=== PATIENT | male | born 1950 | race Caucasian/White ===

== ENCOUNTER 2020-12-13 11:54 | Inpatient (IN) ==
[2020-12-13] MEDS ORDERED: Ondansetron 4 MG/2 ML VIAL IVP PRN (15:30)
[2020-12-13] MEDS ORDERED: Naloxone 0.4 MG/ML INJ IVP PRN (15:30)
[2020-12-13] MEDS ORDERED: Nitroglycerin 0.4 MG TAB.SUBL SL PRN ×2 (15:35→17:40)
[2020-12-13] MEDS ORDERED: Aspirin 325 MG TABLET PO ONE (15:35)
[2020-12-13] MEDS ORDERED: Morphine Sulfate 2 MG/ML SYRINGE IVP PRN (16:27)
[2020-12-13 16:48] LABS: Basophils % 0.3 %; Eosinophils % 0.2 %; Hematocrit 35.2 % (37.5-50.1); Hemoglobin 12.1 g/dL (12.9-16.9); Immature Granulocytes % 0.5 % (0-4); Lymphocytes # 1.5 K/mcL (0.6-4.6); Lymphocytes % 14.2 %; Mean Corpuscular HGB Conc 34.4 g/dL (31.6-35.5); Mean Corpuscular Hemoglobin 31.8 pg (28.0-33.3); Mean Corpuscular Volume 92.6 fL (83.0-100.0); Monocytes # 1.3 K/mcL (0.0-1.3); Monocytes % 12.7 %; Neutrophils # 7.4 K/mcL (1.6-8.9); Platelet Count 196 K/mcL (140-400); Red Cell Distribution Width 13.5 % (11.5-14.5); Segmented Neutrophils % 72.1 %; White Blood Count 10.2 K/mcL (4.3-11.1)
[2020-12-13 16:57] LABS: INR 1.2; Prothrombin Time 13.3 Seconds (9.4-12.1)
[2020-12-13 17:05] LABS: BUN/Creatinine Ratio 10 (6-26); Blood Urea Nitrogen 6 mg/dL (8-23); Calcium 8.4 mg/dL (8.6-10.3); Carbon Dioxide 23 mEq/L (23-29); Chloride 99 mEq/L (98-107); Glucose 101 mg/dL (70-105); Osmolality,Calculated 274 (280-300); Potassium 3.5 mEq/L (3.5-5.1); Sodium 133 mEq/L (136-145); eGFR For African Americans > 60 (> 60); eGFR For Non-African Americans > 60 (> 60)
[2020-12-13 17:38] LABS: Troponin I 0.51 ng/mL (< 0.04)
[2020-12-13] MEDS ORDERED: *HR* Heparin 5,000 UNIT/ML VIAL IVP PRN ×2 (17:43)
[2020-12-13] MEDS ORDERED: *HR* Heparin 5,000 UNIT/ML VIAL IVP ONE (17:43)
[2020-12-13] MEDS ORDERED: Perflutren Lipid Microsphere 1.3 ML in 0.9 % Sodium Chloride 8.7 ML IVP PRN (17:48)
[2020-12-13] MEDS ORDERED: GADOBUTROL 30 MMOL/30 ML VIAL IVP ONE (19:25)
[2020-12-13] MEDS: Morphine Sulfate 2 MG/ML SYRINGE IVP PRN ×2 (19:25→23:28)
[2020-12-13] MEDS: ALPRAZolam 0.5 MG TABLET PO SCH (20:17)
[2020-12-13] MEDS: Heparin 25,000UNIT/250ML 1/2NS 25,000 UNIT/250 ML IV.SOLN IVC SCH (20:18)
[2020-12-13 22:34] LABS: BUN/Creatinine Ratio 11 (6-26); Blood Urea Nitrogen 6 mg/dL (8-23); Carbon Dioxide 21 mEq/L (23-29); Chloride 97 mEq/L (98-107); Glucose 107 mg/dL (70-105); Osmolality,Calculated 266 (280-300); Potassium 3.5 mEq/L (3.5-5.1); Sodium 129 mEq/L (136-145); eGFR For African Americans > 60 (> 60); eGFR For Non-African Americans > 60 (> 60)
[2020-12-13 22:54] LABS: Troponin I 0.47 ng/mL (< 0.04)
[2020-12-14 04:27] LABS: Basophils % 0.4 %; Eosinophils % 0.3 %; Hematocrit 32.8 % (37.5-50.1); Hemoglobin 11.5 g/dL (12.9-16.9); Immature Granulocytes % 0.5 % (0-4); Lymphocytes # 1.5 K/mcL (0.6-4.6); Lymphocytes % 14.5 %; Mean Corpuscular HGB Conc 35.1 g/dL (31.6-35.5); Mean Corpuscular Hemoglobin 31.9 pg (28.0-33.3); Mean Corpuscular Volume 90.9 fL (83.0-100.0); Mean Platelet Volume 9.8 fL (9.4-12.4); Monocytes # 0.9 K/mcL (0.0-1.3); Monocytes % 8.8 %; Neutrophils # 7.8 K/mcL (1.6-8.9); Platelet Count 194 K/mcL (140-400); Red Blood Count 3.61 M/mcL (4.19-5.50); Red Cell Distribution Width 13.2 % (11.5-14.5); Segmented Neutrophils % 75.5 %; White Blood Count 10.3 K/mcL (4.3-11.1)
[2020-12-14 04:35] LABS: Alanine Aminotransferase 9 Units/L (7-52); Albumin 3.8 g/dL (3.5-5.7); Albumin/Globulin Ratio 2.1 (1.1-2.2); Alkaline Phosphatase 63 Units/L (34-104); Aspartate Amino Transferase 22 Units/L (13-39); BUN/Creatinine Ratio 9 (6-26); Bilirubin,Direct 0.2 mg/dL (0.0-0.2); Bilirubin,Indirect 0.4 mg/dL (0.0-1.0); Bilirubin,Total 0.6 mg/dL (0.3-1.0); Blood Urea Nitrogen 5 mg/dL (8-23); Calcium 8.1 mg/dL (8.6-10.3); Carbon Dioxide 24 mEq/L (23-29); Chloride 98 mEq/L (98-107); Globulin 1.8 g/dL (2.4-3.5); Glucose 96 mg/dL (70-105); Magnesium 1.9 mg/dL (1.6-2.6); Osmolality,Calculated 269 (280-300); Potassium 3.8 mEq/L (3.5-5.1); Sodium 131 mEq/L (136-145); Total Protein 5.6 g/dL (6.4-8.9); eGFR For African Americans > 60 (> 60); eGFR For Non-African Americans > 60 (> 60)
[2020-12-14] MEDS: Morphine Sulfate 2 MG/ML SYRINGE IVP PRN ×4 (05:21→20:29)
[2020-12-14] MEDS: Metoprolol XL (24 HR) Succ 50 MG TAB.ER.24H PO SCH (07:50)
[2020-12-14] MEDS: Aspirin Enteric Coated 81 MG Tablet PO SCH (07:50)
[2020-12-14] MEDS: ALPRAZolam 0.5 MG TABLET PO SCH ×2 (07:50→20:28)
[2020-12-14] MEDS ORDERED: Ringers Solution, Lactated 1,000 ML ONE (08:53)
[2020-12-14 08:57] LABS: BUN/Creatinine Ratio 11 (6-26); Blood Urea Nitrogen 6 mg/dL (8-23); Calcium 8.2 mg/dL (8.6-10.3); Carbon Dioxide 24 mEq/L (23-29); Chloride 100 mEq/L (98-107); Glucose 95 mg/dL (70-105); Osmolality,Calculated 267 (280-300); Potassium 3.9 mEq/L (3.5-5.1); Sodium 130 mEq/L (136-145); eGFR For African Americans > 60 (> 60); eGFR For Non-African Americans > 60 (> 60)
[2020-12-14] MEDS: Isosorbide MONOnitrate (24 HR) 30 MG TAB.ER.24H PO SCH (11:21)
[2020-12-14 12:56] LABS: BUN/Creatinine Ratio 13 (6-26); Blood Urea Nitrogen 7 mg/dL (8-23); Calcium 8.3 mg/dL (8.6-10.3); Carbon Dioxide 21 mEq/L (23-29); Chloride 100 mEq/L (98-107); Glucose 124 mg/dL (70-105); Osmolality,Calculated 269 (280-300); Potassium 3.7 mEq/L (3.5-5.1); Sodium 130 mEq/L (136-145); eGFR For African Americans > 60 (> 60); eGFR For Non-African Americans > 60 (> 60)
[2020-12-14] MEDS: lisinopriL 20 MG TABLET PO SCH (13:04)
[2020-12-14 19:03] LABS: BUN/Creatinine Ratio 17 (6-26); Blood Urea Nitrogen 11 mg/dL (8-23); Calcium 8.3 mg/dL (8.6-10.3); Carbon Dioxide 22 mEq/L (23-29); Chloride 101 mEq/L (98-107); Glucose 106 mg/dL (70-105); Osmolality,Calculated 270 (280-300); Potassium 3.9 mEq/L (3.5-5.1); Sodium 130 mEq/L (136-145); eGFR For African Americans > 60 (> 60); eGFR For Non-African Americans > 60 (> 60)
[2020-12-14 21:19] LABS: BUN/Creatinine Ratio 20 (6-26); Blood Urea Nitrogen 12 mg/dL (8-23); Calcium 8.2 mg/dL (8.6-10.3); Carbon Dioxide 22 mEq/L (23-29); Chloride 100 mEq/L (98-107); Glucose 125 mg/dL (70-105); Osmolality,Calculated 271 (280-300); Potassium 3.9 mEq/L (3.5-5.1); Sodium 130 mEq/L (136-145); eGFR For African Americans > 60 (> 60); eGFR For Non-African Americans > 60 (> 60)
[2020-12-14] MEDS: Heparin 25,000UNIT/250ML 1/2NS 25,000 UNIT/250 ML IV.SOLN IVC SCH (21:46)
[2020-12-15] MEDS: Morphine Sulfate 2 MG/ML SYRINGE IVP PRN ×4 (00:30→14:18)
[2020-12-15] MEDS: Acetaminophen 325 MG TABLET PO PRN (02:44)
[2020-12-15] MEDS ORDERED: *HR* FentaNYL (PF) 100 MCG/2 ML VIAL IVP ONE (03:52)
[2020-12-15 06:02] LABS: Basophils # 0.1 K/mcL (0.0-0.2); Basophils % 0.4 %; Eosinophils % 0.3 %; Hematocrit 30.2 % (37.5-50.1); Hemoglobin 10.7 g/dL (12.9-16.9); Immature Granulocytes % 0.5 % (0-4); Lymphocytes # 1.6 K/mcL (0.6-4.6); Lymphocytes % 13.4 %; Mean Corpuscular HGB Conc 35.4 g/dL (31.6-35.5); Mean Corpuscular Hemoglobin 32.4 pg (28.0-33.3); Mean Corpuscular Volume 91.5 fL (83.0-100.0); Mean Platelet Volume 10.3 fL (9.4-12.4); Monocytes # 1.2 K/mcL (0.0-1.3); Monocytes % 9.9 %; Platelet Count 186 K/mcL (140-400); Red Cell Distribution Width 13.3 % (11.5-14.5); Segmented Neutrophils % 75.5 %; White Blood Count 11.9 K/mcL (4.3-11.1)
[2020-12-15 06:22] LABS: BUN/Creatinine Ratio 18 (6-26); Blood Urea Nitrogen 11 mg/dL (8-23); Calcium 8.2 mg/dL (8.6-10.3); Carbon Dioxide 21 mEq/L (23-29); Chloride 102 mEq/L (98-107); Glucose 103 mg/dL (70-105); Osmolality,Calculated 272 (280-300); Potassium 3.7 mEq/L (3.5-5.1); Sodium 131 mEq/L (136-145); eGFR For African Americans > 60 (> 60); eGFR For Non-African Americans > 60 (> 60)
[2020-12-15] MEDS: lisinopriL 20 MG TABLET PO SCH (07:39)
[2020-12-15] MEDS ORDERED: Acetaminophen IV 1,000 MG/100 ML BAG IVPB ONE (07:39)
[2020-12-15] MEDS: Isosorbide MONOnitrate (24 HR) 30 MG TAB.ER.24H PO SCH (07:42)
[2020-12-15] MEDS: ALPRAZolam 0.5 MG TABLET PO SCH ×2 (07:42→21:06)
[2020-12-15] MEDS: Metoprolol XL (24 HR) Succ 50 MG TAB.ER.24H PO SCH (07:42)
[2020-12-15] MEDS: Aspirin Enteric Coated 81 MG Tablet PO SCH (07:42)
[2020-12-15] MEDS: *HR* LORazepam 2 MG/ML VIAL IVP PRN (16:22)
[2020-12-15] MEDS ORDERED: Haloperidol Lactate 5 MG/ML VIAL IVP ONE ×2 (18:34→20:48)
[2020-12-15] MEDS: *HR* Ticagrelor 90 MG TABLET PO SCH (21:06)
[2020-12-16] MEDS ORDERED: Ziprasidone 10 MG, Closed System Device IM Kit 1 EACH in Water for inj. (sterile) 0.5 ML IM ONE (02:16)
[2020-12-16] MEDS: Morphine Sulfate 2 MG/ML SYRINGE IVP PRN (04:04)
[2020-12-16 06:03] LABS: Basophils % 0.2 %; Eosinophils % 0.1 %; Hematocrit 30.6 % (37.5-50.1); Hemoglobin 10.7 g/dL (12.9-16.9); Immature Granulocytes % 0.4 % (0-4); Lymphocytes # 1.4 K/mcL (0.6-4.6); Lymphocytes % 12.5 %; Mean Corpuscular Hemoglobin 31.8 pg (28.0-33.3); Mean Corpuscular Volume 90.8 fL (83.0-100.0); Mean Platelet Volume 9.7 fL (9.4-12.4); Monocytes # 1.2 K/mcL (0.0-1.3); Neutrophils # 8.3 K/mcL (1.6-8.9); Platelet Count 181 K/mcL (140-400); Red Blood Count 3.37 M/mcL (4.19-5.50); Red Cell Distribution Width 13.3 % (11.5-14.5); Segmented Neutrophils % 75.8 %
[2020-12-16 06:23] LABS: Albumin 3.7 g/dL (3.5-5.7); Albumin/Globulin Ratio 1.7 (1.1-2.2); Bilirubin,Direct 0.2 mg/dL (0.0-0.2); Bilirubin,Indirect 0.7 mg/dL (0.0-1.0); Bilirubin,Total 0.9 mg/dL (0.3-1.0); Globulin 2.2 g/dL (2.4-3.5); Magnesium 1.6 mg/dL (1.6-2.6); Total Protein 5.9 g/dL (6.4-8.9)
[2020-12-16 06:25] LABS: BUN/Creatinine Ratio 15 (6-26); Blood Urea Nitrogen 8 mg/dL (8-23); Calcium 8.2 mg/dL (8.6-10.3); Carbon Dioxide 21 mEq/L (23-29); Chloride 98 mEq/L (98-107); Glucose 107 mg/dL (70-105); Osmolality,Calculated 263 (280-300); Potassium 3.4 mEq/L (3.5-5.1); Sodium 127 mEq/L (136-145); eGFR For African Americans > 60 (> 60); eGFR For Non-African Americans > 60 (> 60)
[2020-12-16] MEDS: Isosorbide MONOnitrate (24 HR) 30 MG TAB.ER.24H PO SCH (08:25)
[2020-12-16] MEDS: NIFEdipine XL (24 HR) 60 MG TAB.ER.24 PO SCH (08:25)
[2020-12-16] MEDS: Aspirin Enteric Coated 81 MG Tablet PO SCH (08:25)
[2020-12-16] MEDS: carvediloL 6.25 MG TABLET PO SCH ×2 (08:25→16:48)
[2020-12-16] MEDS: lisinopriL 20 MG TABLET PO SCH (08:25)
[2020-12-16] MEDS: ALPRAZolam 0.5 MG TABLET PO SCH ×2 (08:25→21:22)
[2020-12-16] MEDS: *HR* Ticagrelor 90 MG TABLET PO SCH ×2 (08:26→21:22)
[2020-12-16] MEDS: Acetaminophen 325 MG TABLET PO PRN ×2 (08:30→16:47)
[2020-12-16] MEDS: Morphine Sulfate ER (12 HR) 15 MG TABLET.ER PO SCH ×2 (11:05→21:22)
[2020-12-16] MEDS ORDERED: Acetaminophen IV 1,000 MG/100 ML BAG IVPB ONE (12:56)
[2020-12-16 14:43] LABS: Potassium,Urine 41.7 mEq/L; Protein/Creatinine Ratio,Urine 0.31 mg/mg (0.00-0.20); Sodium, Urine 114.9 mEq/L
[2020-12-16] MEDS ORDERED: Morphine Sulfate ER (12 HR) 15 MG TABLET.ER PO SCH (18:00)
[2020-12-17] MEDS: Acetaminophen 325 MG TABLET PO PRN ×2 (00:31→14:37)
[2020-12-17 02:01] LABS: Basophils % 0.2 %; Eosinophils # 0.1 K/mcL (0.0-0.6); Eosinophils % 0.6 %; Hematocrit 32.6 % (37.5-50.1); Hemoglobin 11.2 g/dL (12.9-16.9); Immature Granulocytes % 0.5 % (0-4); Lymphocytes # 1.2 K/mcL (0.6-4.6); Mean Corpuscular HGB Conc 34.4 g/dL (31.6-35.5); Mean Corpuscular Hemoglobin 30.9 pg (28.0-33.3); Mean Corpuscular Volume 90.1 fL (83.0-100.0); Monocytes # 1.3 K/mcL (0.0-1.3); Monocytes % 11.4 %; Neutrophils # 8.6 K/mcL (1.6-8.9); Platelet Count 194 K/mcL (140-400); Red Blood Count 3.62 M/mcL (4.19-5.50); Red Cell Distribution Width 13.1 % (11.5-14.5); Segmented Neutrophils % 76.3 %; White Blood Count 11.2 K/mcL (4.3-11.1)
[2020-12-17 02:18] LABS: BUN/Creatinine Ratio 12 (6-26); Blood Urea Nitrogen 6 mg/dL (8-23); Calcium 8.2 mg/dL (8.6-10.3); Carbon Dioxide 22 mEq/L (23-29); Chloride 96 mEq/L (98-107); Glucose 114 mg/dL (70-105); Magnesium 1.5 mg/dL (1.6-2.6); Osmolality,Calculated 260 (280-300); Potassium 3.5 mEq/L (3.5-5.1); Sodium 126 mEq/L (136-145); eGFR For African Americans > 60 (> 60); eGFR For Non-African Americans > 60 (> 60)
[2020-12-17] MEDS: ALPRAZolam 0.5 MG TABLET PO SCH ×2 (08:41→20:57)
[2020-12-17] MEDS: Aspirin Enteric Coated 81 MG Tablet PO SCH (08:41)
[2020-12-17] MEDS: carvediloL 6.25 MG TABLET PO SCH ×2 (08:41→17:09)
[2020-12-17] MEDS: lisinopriL 20 MG TABLET PO SCH (08:41)
[2020-12-17] MEDS: QUEtiapine Fumarate 25 MG TABLET PO SCH (08:41)
[2020-12-17] MEDS: Isosorbide MONOnitrate (24 HR) 30 MG TAB.ER.24H PO SCH (08:41)
[2020-12-17] MEDS: NIFEdipine XL (24 HR) 60 MG TAB.ER.24 PO SCH (08:41)
[2020-12-17] MEDS: *HR* Ticagrelor 90 MG TABLET PO SCH ×2 (08:42→20:56)
[2020-12-17] MEDS: *HR* Enoxaparin 40 MG/0.4 ML SYRINGE SQ SCH (08:42)
[2020-12-17] MEDS: Morphine Sulfate ER (12 HR) 30 MG TABLET.ER PO SCH ×2 (09:18→20:57)
[2020-12-17] MEDS: *HR* LORazepam 2 MG/ML VIAL IVP PRN (14:37)
[2020-12-17 17:27] LABS: BUN/Creatinine Ratio 16 (6-26); Blood Urea Nitrogen 10 mg/dL (8-23); Calcium 8.7 mg/dL (8.6-10.3); Carbon Dioxide 21 mEq/L (23-29); Chloride 96 mEq/L (98-107); Glucose 154 mg/dL (70-105); Osmolality,Calculated 258 (280-300); Potassium 4.4 mEq/L (3.5-5.1); Sodium 123 mEq/L (136-145); eGFR For African Americans > 60 (> 60); eGFR For Non-African Americans > 60 (> 60)
[2020-12-18] MEDS: Acetaminophen 325 MG TABLET PO PRN ×2 (03:14→10:03)
[2020-12-18 03:32] LABS: Basophils % 0.2 %; Eosinophils % 0.1 %; Hematocrit 34.5 % (37.5-50.1); Hemoglobin 12.1 g/dL (12.9-16.9); Immature Granulocytes % 1.1 % (0-4); Lymphocytes # 0.9 K/mcL (0.6-4.6); Lymphocytes % 6.5 %; Mean Corpuscular HGB Conc 35.1 g/dL (31.6-35.5); Mean Corpuscular Volume 91.3 fL (83.0-100.0); Mean Platelet Volume 10.1 fL (9.4-12.4); Monocytes # 1.7 K/mcL (0.0-1.3); Monocytes % 11.7 %; Neutrophils # 11.7 K/mcL (1.6-8.9); Platelet Count 196 K/mcL (140-400); Red Blood Count 3.78 M/mcL (4.19-5.50); Red Cell Distribution Width 13.7 % (11.5-14.5); Segmented Neutrophils % 80.4 %; White Blood Count 14.5 K/mcL (4.3-11.1)
[2020-12-18 03:47] LABS: BUN/Creatinine Ratio 22 (6-26); Blood Urea Nitrogen 14 mg/dL (8-23); Calcium 8.7 mg/dL (8.6-10.3); Carbon Dioxide 20 mEq/L (23-29); Chloride 96 mEq/L (98-107); Glucose 115 mg/dL (70-105); Magnesium 1.8 mg/dL (1.6-2.6); Osmolality,Calculated 261 (280-300); Potassium 4.3 mEq/L (3.5-5.1); Sodium 125 mEq/L (136-145); eGFR For African Americans > 60 (> 60); eGFR For Non-African Americans > 60 (> 60)
[2020-12-18 04:01] LABS: Thyroid Stimulating Hormone 0.972 mcIU/mL (0.340-5.600)
[2020-12-18] MEDS: *HR* Enoxaparin 40 MG/0.4 ML SYRINGE SQ SCH (05:26)
[2020-12-18] MEDS: Morphine Sulfate ER (12 HR) 30 MG TABLET.ER PO SCH ×2 (08:51→21:22)
[2020-12-18] MEDS: QUEtiapine Fumarate 25 MG TABLET PO SCH (08:51)
[2020-12-18] MEDS: carvediloL 6.25 MG TABLET PO SCH ×2 (08:51→17:01)
[2020-12-18] MEDS: Thiamine (B-1) 100 MG TABLET PO SCH (08:51)
[2020-12-18] MEDS: Aspirin Enteric Coated 81 MG Tablet PO SCH (08:52)
[2020-12-18] MEDS: Isosorbide MONOnitrate (24 HR) 30 MG TAB.ER.24H PO SCH (08:52)
[2020-12-18] MEDS: NIFEdipine XL (24 HR) 60 MG TAB.ER.24 PO SCH (08:52)
[2020-12-18] MEDS: ALPRAZolam 0.5 MG TABLET PO SCH ×2 (08:52→21:22)
[2020-12-18] MEDS: lisinopriL 20 MG TABLET PO SCH (08:52)
[2020-12-18] MEDS: Folic Acid 1 MG TABLET PO SCH (08:52)
[2020-12-18] MEDS: *HR* Ticagrelor 90 MG TABLET PO SCH ×2 (08:52→21:20)
[2020-12-18] MEDS ORDERED: *HR* OxyCODONE/APAP 10/325 TABLET PO PRN (12:02)
[2020-12-18] MEDS: *HR* OxyCODONE/APAP 10/325 TABLET PO PRN (17:01)
[2020-12-18 17:17] LABS: Bacteria,Urine Few per hpf (None-Few); Bilirubin,Urine Negative (Negative); Blood,Urine Trace (Negative); Clarity,Urine Clear (Clear); Color,Urine Light-Yellow (Yellow); Glucose,Urine (UA) Normal (Normal); Ketones,Urine Negative (Negative); Leukocyte Esterase,Urine Negative (Negative); Mucus,Urine Few per lpf (None-Few); Nitrite,Urine Negative (Negative); Protein,Urine Trace mg/dL (Neg-Trace); RBC,Urine 0-3 per hpf (0-3); Specific Gravity,Urine 1.013 (1.010-1.025); WBC,Urine 0-3 per hpf (0-3)
[2020-12-18] MEDS ORDERED: Morphine Sulfate ER (12 HR) 15 MG TABLET.ER PO SCH (18:00)
[2020-12-18] MEDS: Morphine Sulfate ER (12 HR) 15 MG TABLET.ER PO SCH (21:22)
[2020-12-19] MEDS: Piperacillin/Tazobactam 3.375 GM in 0.9 % Sodium Chloride Mini Bag 100 ML IVPB SCH ×4 (00:19→23:30)
[2020-12-19] MEDS: *HR* OxyCODONE/APAP 10/325 TABLET PO PRN ×2 (00:38→13:55)
[2020-12-19] MEDS: *HR* Enoxaparin 40 MG/0.4 ML SYRINGE SQ SCH (05:39)
[2020-12-19 07:15] LABS: Basophils % 0.2 %; Eosinophils % 0.1 %; Hematocrit 30.4 % (37.5-50.1); Immature Granulocytes % 0.8 % (0-4); Lymphocytes # 0.4 K/mcL (0.6-4.6); Lymphocytes % 3.2 %; Mean Corpuscular HGB Conc 36.2 g/dL (31.6-35.5); Mean Corpuscular Hemoglobin 32.8 pg (28.0-33.3); Mean Corpuscular Volume 90.7 fL (83.0-100.0); Mean Platelet Volume 10.1 fL (9.4-12.4); Monocytes # 0.6 K/mcL (0.0-1.3); Monocytes % 4.5 %; Neutrophils # 11.3 K/mcL (1.6-8.9); Platelet Count 158 K/mcL (140-400); Red Blood Count 3.35 M/mcL (4.19-5.50); Red Cell Distribution Width 13.7 % (11.5-14.5); Segmented Neutrophils % 91.2 %; White Blood Count 12.4 K/mcL (4.3-11.1)
[2020-12-19 07:29] LABS: BUN/Creatinine Ratio 20 (6-26); Blood Urea Nitrogen 17 mg/dL (8-23); Calcium 8.6 mg/dL (8.6-10.3); Carbon Dioxide 20 mEq/L (23-29); Chloride 93 mEq/L (98-107); Glucose 117 mg/dL (70-105); Osmolality,Calculated 257 (280-300); Potassium 4.1 mEq/L (3.5-5.1); Sodium 122 mEq/L (136-145); eGFR For African Americans > 60 (> 60); eGFR For Non-African Americans > 60 (> 60)
[2020-12-19] MEDS ORDERED: 0.9 % Sodium Chloride 1,000 ML IVC SCH (07:45)
[2020-12-19] MEDS ORDERED: *HR* LORazepam 0.5 MG TABLET PO PRN (08:12)
[2020-12-19] MEDS: ALPRAZolam 0.5 MG TABLET PO SCH ×2 (08:41→20:05)
[2020-12-19] MEDS: lisinopriL 20 MG TABLET PO SCH (08:41)
[2020-12-19] MEDS: Folic Acid 1 MG TABLET PO SCH (08:41)
[2020-12-19] MEDS: NIFEdipine XL (24 HR) 60 MG TAB.ER.24 PO SCH (08:41)
[2020-12-19] MEDS: *HR* Ticagrelor 90 MG TABLET PO SCH ×2 (08:42→20:05)
[2020-12-19] MEDS: carvediloL 6.25 MG TABLET PO SCH ×2 (08:42→16:45)
[2020-12-19] MEDS: Isosorbide MONOnitrate (24 HR) 30 MG TAB.ER.24H PO SCH (08:42)
[2020-12-19] MEDS: QUEtiapine Fumarate 25 MG TABLET PO SCH (08:42)
[2020-12-19] MEDS: Thiamine (B-1) 100 MG TABLET PO SCH (08:42)
[2020-12-19] MEDS: Morphine Sulfate ER (12 HR) 30 MG TABLET.ER PO SCH ×2 (08:42→20:05)
[2020-12-19] MEDS: Aspirin Enteric Coated 81 MG Tablet PO SCH (08:42)
[2020-12-19] MEDS: Morphine Sulfate ER (12 HR) 15 MG TABLET.ER PO SCH ×2 (08:42→20:05)
[2020-12-19] MEDS: Acetaminophen 325 MG TABLET PO PRN (10:15)
[2020-12-19 12:50] LABS: Thyroid Stimulating Hormone 1.292 mcIU/mL (0.340-5.600)
[2020-12-20] MEDS: *HR* OxyCODONE/APAP 10/325 TABLET PO PRN ×3 (01:51→15:45)
[2020-12-20] MEDS: *HR* Enoxaparin 40 MG/0.4 ML SYRINGE SQ SCH (05:47)
[2020-12-20] MEDS: NIFEdipine XL (24 HR) 60 MG TAB.ER.24 PO SCH (08:08)
[2020-12-20] MEDS: ALPRAZolam 0.5 MG TABLET PO SCH ×2 (08:08→19:46)
[2020-12-20] MEDS: Morphine Sulfate ER (12 HR) 15 MG TABLET.ER PO SCH ×2 (08:08→19:46)
[2020-12-20] MEDS: *HR* Ticagrelor 90 MG TABLET PO SCH ×2 (08:09→19:46)
[2020-12-20] MEDS: Thiamine (B-1) 100 MG TABLET PO SCH (08:09)
[2020-12-20] MEDS: Morphine Sulfate ER (12 HR) 30 MG TABLET.ER PO SCH ×2 (08:09→19:46)
[2020-12-20] MEDS: Aspirin Enteric Coated 81 MG Tablet PO SCH (08:09)
[2020-12-20] MEDS: Isosorbide MONOnitrate (24 HR) 30 MG TAB.ER.24H PO SCH (08:10)
[2020-12-20] MEDS: QUEtiapine Fumarate 25 MG TABLET PO SCH (08:10)
[2020-12-20] MEDS: carvediloL 6.25 MG TABLET PO SCH ×2 (08:10→15:45)
[2020-12-20] MEDS: Piperacillin/Tazobactam 3.375 GM in 0.9 % Sodium Chloride Mini Bag 100 ML IVPB SCH ×3 (08:10→23:51)
[2020-12-20] MEDS: Folic Acid 1 MG TABLET PO SCH (08:16)
[2020-12-20 09:18] LABS: Eosinophils # 0.1 K/mcL (0.0-0.6); Hematocrit 27.6 % (37.5-50.1); Hemoglobin 9.6 g/dL (12.9-16.9); Mean Corpuscular HGB Conc 34.8 g/dL (31.6-35.5); Mean Corpuscular Hemoglobin 31.9 pg (28.0-33.3); Mean Corpuscular Volume 91.7 fL (83.0-100.0); Mean Platelet Volume 10.7 fL (9.4-12.4); Platelet Count 169 K/mcL (140-400); Red Blood Count 3.01 M/mcL (4.19-5.50); White Blood Count 10.6 K/mcL (4.3-11.1)
[2020-12-20 09:37] LABS: Alanine Aminotransferase 14 Units/L (7-52); Albumin 3.1 g/dL (3.5-5.7); Albumin/Globulin Ratio 1.3 (1.1-2.2); Alkaline Phosphatase 56 Units/L (34-104); Aspartate Amino Transferase 24 Units/L (13-39); BUN/Creatinine Ratio 20 (6-26); Bilirubin,Total 0.4 mg/dL (0.3-1.0); Blood Urea Nitrogen 15 mg/dL (8-23); Calcium 8.4 mg/dL (8.6-10.3); Carbon Dioxide 22 mEq/L (23-29); Chloride 95 mEq/L (98-107); Globulin 2.4 g/dL (2.4-3.5); Glucose 116 mg/dL (70-105); Osmolality,Calculated 260 (280-300); Potassium 3.7 mEq/L (3.5-5.1); Sodium 124 mEq/L (136-145); Total Protein 5.5 g/dL (6.4-8.9); eGFR For African Americans > 60 (> 60); eGFR For Non-African Americans > 60 (> 60)
[2020-12-20 10:03] LABS: Basophils # 0.1 K/mcL (0.0-0.2); Lymphocytes # 0.3 K/mcL (0.6-4.6); Monocytes # 0.6 K/mcL (0.0-1.3); Neutrophils # 9.4 K/mcL (1.6-8.9); Platelet Estimate Normal (Normal); Reactive Lymphocytes Present (Not Present)
[2020-12-20] MEDS ORDERED: 0.9 % Sodium Chloride 1,000 ML IVC SCH (10:15)
[2020-12-20] MEDS: Acetaminophen 325 MG TABLET PO PRN (23:51)
[2020-12-21 03:40] LABS: Hemoglobin 9.2 g/dL (12.9-16.9); Mean Corpuscular HGB Conc 34.1 g/dL (31.6-35.5); Mean Corpuscular Hemoglobin 31.6 pg (28.0-33.3); Mean Corpuscular Volume 92.8 fL (83.0-100.0); Mean Platelet Volume 10.5 fL (9.4-12.4); Platelet Count 185 K/mcL (140-400); Red Blood Count 2.91 M/mcL (4.19-5.50); Red Cell Distribution Width 14.2 % (11.5-14.5); White Blood Count 9.6 K/mcL (4.3-11.1)
[2020-12-21 03:50] LABS: BUN/Creatinine Ratio 17 (6-26); Blood Urea Nitrogen 13 mg/dL (8-23); Calcium 8.4 mg/dL (8.6-10.3); Carbon Dioxide 23 mEq/L (23-29); Chloride 102 mEq/L (98-107); Glucose 117 mg/dL (70-105); Osmolality,Calculated 275 (280-300); Potassium 3.9 mEq/L (3.5-5.1); Sodium 132 mEq/L (136-145); eGFR For African Americans > 60 (> 60); eGFR For Non-African Americans > 60 (> 60)
[2020-12-21] MEDS: *HR* Enoxaparin 40 MG/0.4 ML SYRINGE SQ SCH (06:36)
[2020-12-21] MEDS ORDERED: Isovue-370 500 ML BOTTLE IVP ONE (07:38)
[2020-12-21] MEDS: Morphine Sulfate ER (12 HR) 15 MG TABLET.ER PO SCH ×2 (07:50→21:14)
[2020-12-21] MEDS: QUEtiapine Fumarate 25 MG TABLET PO SCH (07:50)
[2020-12-21] MEDS: Isosorbide MONOnitrate (24 HR) 30 MG TAB.ER.24H PO SCH (07:50)
[2020-12-21] MEDS: ALPRAZolam 0.5 MG TABLET PO SCH ×2 (07:50→21:13)
[2020-12-21] MEDS: Aspirin Enteric Coated 81 MG Tablet PO SCH (07:50)
[2020-12-21] MEDS: NIFEdipine XL (24 HR) 60 MG TAB.ER.24 PO SCH (07:50)
[2020-12-21] MEDS: Morphine Sulfate ER (12 HR) 30 MG TABLET.ER PO SCH ×2 (07:50→21:14)
[2020-12-21] MEDS: *HR* Ticagrelor 90 MG TABLET PO SCH ×2 (07:50→21:14)
[2020-12-21] MEDS: Thiamine (B-1) 100 MG TABLET PO SCH (07:50)
[2020-12-21] MEDS: carvediloL 6.25 MG TABLET PO SCH ×2 (07:50→15:46)
[2020-12-21] MEDS: Folic Acid 1 MG TABLET PO SCH (07:51)
[2020-12-21] MEDS: Piperacillin/Tazobactam 3.375 GM in 0.9 % Sodium Chloride Mini Bag 100 ML IVPB SCH ×3 (07:51→23:55)
[2020-12-21] MEDS: *HR* OxyCODONE/APAP 10/325 TABLET PO PRN ×2 (10:20→15:47)
[2020-12-22] MEDS: *HR* OxyCODONE/APAP 10/325 TABLET PO PRN (03:03)
[2020-12-22 05:50] LABS: Hematocrit 28.9 % (37.5-50.1); Hemoglobin 9.9 g/dL (12.9-16.9); Mean Corpuscular HGB Conc 34.3 g/dL (31.6-35.5); Mean Corpuscular Volume 93.5 fL (83.0-100.0); Mean Platelet Volume 10.4 fL (9.4-12.4); Platelet Count 215 K/mcL (140-400); Red Blood Count 3.09 M/mcL (4.19-5.50); Red Cell Distribution Width 14.5 % (11.5-14.5); White Blood Count 10.3 K/mcL (4.3-11.1)
[2020-12-22 06:12] LABS: BUN/Creatinine Ratio 17 (6-26); Blood Urea Nitrogen 11 mg/dL (8-23); Calcium 8.2 mg/dL (8.6-10.3); Carbon Dioxide 24 mEq/L (23-29); Chloride 102 mEq/L (98-107); Glucose 111 mg/dL (70-105); Osmolality,Calculated 276 (280-300); Potassium 3.7 mEq/L (3.5-5.1); Sodium 133 mEq/L (136-145); eGFR For African Americans > 60 (> 60); eGFR For Non-African Americans > 60 (> 60)
[2020-12-22] MEDS: *HR* Enoxaparin 40 MG/0.4 ML SYRINGE SQ SCH (06:12)
[2020-12-22] MEDS: Folic Acid 1 MG TABLET PO SCH (07:46)
[2020-12-22] MEDS: Morphine Sulfate ER (12 HR) 15 MG TABLET.ER PO SCH ×2 (07:46→19:55)
[2020-12-22] MEDS: Morphine Sulfate ER (12 HR) 30 MG TABLET.ER PO SCH ×2 (07:46→19:55)
[2020-12-22] MEDS: ALPRAZolam 0.5 MG TABLET PO SCH ×2 (07:46→19:55)
[2020-12-22] MEDS: Thiamine (B-1) 100 MG TABLET PO SCH (07:46)
[2020-12-22] MEDS: Aspirin Enteric Coated 81 MG Tablet PO SCH (07:47)
[2020-12-22] MEDS: NIFEdipine XL (24 HR) 60 MG TAB.ER.24 PO SCH (07:47)
[2020-12-22] MEDS: *HR* Ticagrelor 90 MG TABLET PO SCH ×2 (07:47→19:56)
[2020-12-22] MEDS: QUEtiapine Fumarate 25 MG TABLET PO SCH (07:47)
[2020-12-22] MEDS: Isosorbide MONOnitrate (24 HR) 30 MG TAB.ER.24H PO SCH (07:47)
[2020-12-22] MEDS: carvediloL 6.25 MG TABLET PO SCH ×2 (07:47→16:19)
[2020-12-22] MEDS: Piperacillin/Tazobactam 3.375 GM in 0.9 % Sodium Chloride Mini Bag 100 ML IVPB SCH ×2 (07:48→16:19)
[2020-12-22] MEDS: 0.9 % Sodium Chloride 1,000 ML IVC SCH ×2 (12:34→23:02)
[2020-12-22] MEDS: Acetaminophen 325 MG TABLET PO PRN (16:19)
[2020-12-23] MEDS: Piperacillin/Tazobactam 3.375 GM in 0.9 % Sodium Chloride Mini Bag 100 ML IVPB SCH ×4 (00:19→23:36)
[2020-12-23] MEDS: *HR* OxyCODONE/APAP 10/325 TABLET PO PRN ×2 (03:59→15:00)
[2020-12-23] MEDS ORDERED: Melatonin 3 MG TABLET PO PRN (04:02)
[2020-12-23] MEDS: *HR* Enoxaparin 40 MG/0.4 ML SYRINGE SQ SCH (06:21)
[2020-12-23] MEDS: ALPRAZolam 0.5 MG TABLET PO SCH ×2 (08:34→20:34)
[2020-12-23] MEDS: Thiamine (B-1) 100 MG TABLET PO SCH (08:34)
[2020-12-23] MEDS: *HR* Ticagrelor 90 MG TABLET PO SCH ×2 (08:35→20:34)
[2020-12-23] MEDS: Isosorbide MONOnitrate (24 HR) 30 MG TAB.ER.24H PO SCH (08:35)
[2020-12-23] MEDS: Morphine Sulfate ER (12 HR) 15 MG TABLET.ER PO SCH ×2 (08:35→20:34)
[2020-12-23] MEDS: Folic Acid 1 MG TABLET PO SCH (08:35)
[2020-12-23] MEDS: NIFEdipine XL (24 HR) 60 MG TAB.ER.24 PO SCH (08:35)
[2020-12-23] MEDS: Aspirin Enteric Coated 81 MG Tablet PO SCH (08:35)
[2020-12-23] MEDS: Morphine Sulfate ER (12 HR) 30 MG TABLET.ER PO SCH ×2 (08:35→20:34)
[2020-12-23] MEDS: carvediloL 6.25 MG TABLET PO SCH ×2 (08:35→15:50)
[2020-12-23] MEDS: QUEtiapine Fumarate 25 MG TABLET PO SCH (08:35)
[2020-12-24] MEDS: *HR* OxyCODONE/APAP 10/325 TABLET PO PRN (03:24)
[2020-12-24] MEDS: *HR* Enoxaparin 40 MG/0.4 ML SYRINGE SQ SCH (05:52)
[2020-12-24 07:51] VITALS: BP 140/88; PULSE 88; TEMP 98.1; O2SAT 97
[2020-12-24] MEDS: Piperacillin/Tazobactam 3.375 GM in 0.9 % Sodium Chloride Mini Bag 100 ML IVPB SCH (09:02)
[2020-12-24] MEDS: carvediloL 6.25 MG TABLET PO SCH (09:05)
[2020-12-24] MEDS: *HR* Ticagrelor 90 MG TABLET PO SCH (09:05)
[2020-12-24] MEDS: Morphine Sulfate ER (12 HR) 15 MG TABLET.ER PO SCH (09:05)
[2020-12-24] MEDS: ALPRAZolam 0.5 MG TABLET PO SCH (09:05)
[2020-12-24] MEDS: Isosorbide MONOnitrate (24 HR) 30 MG TAB.ER.24H PO SCH (09:05)
[2020-12-24] MEDS: Morphine Sulfate ER (12 HR) 30 MG TABLET.ER PO SCH (09:05)
[2020-12-24] MEDS: Thiamine (B-1) 100 MG TABLET PO SCH (09:06)
[2020-12-24] MEDS: Aspirin Enteric Coated 81 MG Tablet PO SCH (09:06)
[2020-12-24] MEDS: NIFEdipine XL (24 HR) 60 MG TAB.ER.24 PO SCH (09:06)
[2020-12-24] MEDS: Folic Acid 1 MG TABLET PO SCH (09:06)
[2020-12-24] MEDS: QUEtiapine Fumarate 25 MG TABLET PO SCH (09:06)
== END 2020-12-24 09:38 | disposition home health service (06) | DRG 280 ==
LOC: 3BNU → SUATTDRO 14:32 → 2NNU 20:59 → 2ANU 12-15 22:27
PROVIDERS: ADMIT Pharmacist; ATTEND Internal Medicine

== ENCOUNTER 2021-07-18 22:51 | Observation (INO) ==
[2021-07-18] MEDS ORDERED: Isovue-370 500 ML BOTTLE IVP ONE ×2 (22:57)
[2021-07-18 23:25] LABS: Hematocrit 35.5 % (37.5-50.1); Hemoglobin 10.6 g/dL (12.9-16.9); Mean Corpuscular HGB Conc 29.9 g/dL (31.6-35.5); Mean Corpuscular Hemoglobin 26.8 pg (28.0-33.3); Mean Corpuscular Volume 89.9 fL (83.0-100.0); Mean Platelet Volume 10.4 fL (9.4-12.4); Platelet Count 259 K/mcL (140-400); Red Blood Count 3.95 M/mcL (4.19-5.50); Red Cell Distribution Width 14.5 % (11.5-14.5); White Blood Count 8.7 K/mcL (4.3-11.1)
[2021-07-18 23:33] LABS: INR 1.3
[2021-07-18 23:35] LABS: Activated Partial Thrombo Time 31.7 Seconds (26.0-36.0)
[2021-07-18 23:53] LABS: Alanine Aminotransferase 6 Units/L (7-52); Albumin 3.2 g/dL (3.5-5.7); Albumin/Globulin Ratio 1.2 (1.1-2.2); Alkaline Phosphatase 96 Units/L (34-104); Aspartate Amino Transferase 13 Units/L (13-39); BUN/Creatinine Ratio 16 (6-26); Bilirubin,Indirect 0.3 mg/dL (0.0-1.0); Bilirubin,Total 0.3 mg/dL (0.3-1.0); Blood Urea Nitrogen 12 mg/dL (8-23); Carbon Dioxide 23 mEq/L (23-29); Chloride 105 mEq/L (98-107); Ethanol < 10 mg/dL (Less than 10); Globulin 2.7 g/dL (2.4-3.5); Glucose 115 mg/dL (70-105); Osmolality,Calculated 279 (280-300); Potassium 4.1 mEq/L (3.5-5.1); Sodium 134 mEq/L (136-145); Total Protein 5.9 g/dL (6.4-8.9); Troponin I < 0.03 ng/mL (< 0.04); eGFR For African Americans > 60 (> 60); eGFR For Non-African Americans > 60 (> 60)
[2021-07-19 00:14] LABS: Bilirubin,Urine Negative (Negative); Blood,Urine Trace (Negative); Clarity,Urine Clear (Clear); Color,Urine Light-Yellow (Yellow); Glucose,Urine (UA) Normal (Normal); Ketones,Urine Negative (Negative); Leukocyte Esterase,Urine Negative (Negative); Mucus,Urine Few per lpf (None-Few); Nitrite,Urine Negative (Negative); Protein,Urine Trace mg/dL (Neg-Trace); RBC,Urine 0-3 per hpf (0-3); Specific Gravity,Urine 1.028 (1.010-1.025); Urobilinogen,Urine Normal (Normal); WBC,Urine 0-3 per hpf (0-3)
[2021-07-19 00:24] LABS: Amphetamine Screen,Urine Negative ng/mL (Cutoff=1000); Barbiturate Screen,Urine Negative ng/mL (Cutoff=200); Benzodiazepines Screen,Urine Positive ng/mL (Cutoff=200); Cannabinoid Screen,Urine Positive ng/mL (Cutoff = 50); Cocaine Screen,Urine Negative ng/mL (Cutoff= 300); Opiate Screen,Urine Positive ng/mL (Cutoff=300); Phencyclidine Screen,Urine Negative ng/mL (Cutoff=25)
[2021-07-19 00:47] LABS: Influenza A PCR Negative (Negative); Influenza B PCR Negative (Negative); Resp. Syncytial Virus PCR Negative (Negative)
[2021-07-19 00:49] LABS: SARS-CoV-2 by PCR (In House) Negative (Negative)
[2021-07-19] MEDS ORDERED: Vancomycin 1,500 MG/265 ML IV.SOLN IVPB ONE (01:30)
[2021-07-19] MEDS ORDERED: Cefepime HCl 2,000 MG in 0.9 % Sodium Chloride Mini Bag 100 ML IVPB ONE (02:00)
[2021-07-19] MEDS ORDERED: Ringers Solution, Lactated 1,000 ML IVC ONE (02:36)
[2021-07-19] MEDS ORDERED: Naloxone 0.4 MG/ML INJ IVP PRN (02:37)
[2021-07-19] MEDS ORDERED: Melatonin 3 MG TABLET PO PRN (02:37)
[2021-07-19] MEDS ORDERED: Ondansetron ODT 4 MG TAB.RAPDIS SL PRN (02:37)
[2021-07-19 02:46] LABS: Basophils % 0.4 %; Eosinophils # 0.2 K/mcL (0.0-0.6); Eosinophils % 1.9 %; Immature Granulocytes % 0.4 % (0-4); Lymphocytes # 0.5 K/mcL (0.6-4.6); Lymphocytes % 6.2 %; Monocytes # 0.4 K/mcL (0.0-1.3); Monocytes % 4.2 %; Neutrophils # 7.4 K/mcL (1.6-8.9); Segmented Neutrophils % 86.9 %
[2021-07-19] MEDS ORDERED: Ringers Solution, Lactated 1,000 ML IVC SCH ×2 (04:45→10:04)
[2021-07-19] MEDS: *HR* Heparin 5,000 UNIT/ML VIAL SQ SCH ×2 (05:55→17:45)
[2021-07-19 07:02] LABS: BUN/Creatinine Ratio 16 (6-26); Blood Urea Nitrogen 13 mg/dL (8-23); Calcium 8.6 mg/dL (8.6-10.3); Carbon Dioxide 26 mEq/L (23-29); Chloride 106 mEq/L (98-107); Chol/HDL Ratio 3.5 (0-4.9); Cholesterol 120 mg/dL (< 200); Glucose 126 mg/dL (70-105); HDL Cholesterol 34 mg/dL (40-59); LDL Cholesterol,Calculated 72 mg/dL (< 100); Magnesium 1.8 mg/dL (1.6-2.6); Osmolality,Calculated 284 (280-300); Phosphorous 3.3 mg/dL (2.7-4.5); Potassium 4.1 mEq/L (3.5-5.1); Sodium 136 mEq/L (136-145); Triglycerides 71 mg/dL (< 150); eGFR For African Americans > 60 (> 60); eGFR For Non-African Americans > 60 (> 60)
[2021-07-19] MEDS: levoFLOXacin 750 MG/150 ML 750 MG/150 ML BAG IVPB SCH (08:43)
[2021-07-19] MEDS: ALPRAZolam 0.5 MG TABLET PO PRN (15:27)
[2021-07-19] MEDS: Gabapentin 400 MG CAPSULE PO SCH (19:47)
[2021-07-19] MEDS: *HR* Ticagrelor 90 MG TABLET PO SCH (19:47)
[2021-07-19] MEDS: Morphine Sulfate ER (12 HR) 30 MG TABLET.ER PO SCH (20:04)
[2021-07-20] MEDS: Nicotine 21 MG PATCH.TD24 TD SCH ×2 (00:56→09:28)
[2021-07-20] MEDS: ALPRAZolam 0.5 MG TABLET PO PRN (02:02)
[2021-07-20] MEDS: *HR* Heparin 5,000 UNIT/ML VIAL SQ SCH (05:20)
[2021-07-20] MEDS: Morphine Sulfate ER (12 HR) 30 MG TABLET.ER PO SCH (05:21)
[2021-07-20] MEDS ORDERED: Morphine Sulfate ER (12 HR) 60 MG TABLET.ER PO SCH (06:00)
[2021-07-20 06:03] LABS: Basophils # 0.1 K/mcL (0.0-0.2); Basophils % 0.4 %; Eosinophils # 0.2 K/mcL (0.0-0.6); Eosinophils % 1.5 %; Hematocrit 33.2 % (37.5-50.1); Hemoglobin 10.3 g/dL (12.9-16.9); Immature Granulocytes % 0.7 % (0-4); Lymphocytes # 1.5 K/mcL (0.6-4.6); Lymphocytes % 12.2 %; Mean Corpuscular Hemoglobin 27.2 pg (28.0-33.3); Mean Corpuscular Volume 87.6 fL (83.0-100.0); Mean Platelet Volume 10.6 fL (9.4-12.4); Monocytes # 0.6 K/mcL (0.0-1.3); Monocytes % 5.4 %; Neutrophils # 9.6 K/mcL (1.6-8.9); Platelet Count 223 K/mcL (140-400); Red Blood Count 3.79 M/mcL (4.19-5.50); Red Cell Distribution Width 14.9 % (11.5-14.5); Segmented Neutrophils % 79.8 %
[2021-07-20 06:26] LABS: BUN/Creatinine Ratio 20 (6-26); Blood Urea Nitrogen 12 mg/dL (8-23); Calcium 8.5 mg/dL (8.6-10.3); Carbon Dioxide 24 mEq/L (23-29); Chloride 106 mEq/L (98-107); Glucose 101 mg/dL (70-105); Magnesium 1.8 mg/dL (1.6-2.6); Osmolality,Calculated 282 (280-300); Potassium 3.3 mEq/L (3.5-5.1); Sodium 136 mEq/L (136-145); eGFR For African Americans > 60 (> 60); eGFR For Non-African Americans > 60 (> 60)
[2021-07-20] MEDS ORDERED: Potassium Chloride Elixir 20 MEQ/15 ML UDC PO ONE (07:11)
[2021-07-20 07:41] VITALS: O2SAT 96
[2021-07-20] MEDS ORDERED: amLODIPine 5 MG TABLET PO SCH (09:00)
[2021-07-20] MEDS ORDERED: Aspirin Enteric Coated 81 MG Tablet PO SCH (09:00)
[2021-07-20] MEDS ORDERED: Isosorbide MONOnitrate (24 HR) 30 MG TAB.ER.24H PO SCH (09:00)
[2021-07-20] MEDS ORDERED: Metoprolol XL (24 HR) Succ 50 MG TAB.ER.24H PO SCH (09:00)
[2021-07-20] MEDS: Gabapentin 400 MG CAPSULE PO SCH (09:28)
[2021-07-20] MEDS: levoFLOXacin 750 MG/150 ML 750 MG/150 ML BAG IVPB SCH (09:34)
[2021-07-20] MEDS: *HR* Ticagrelor 90 MG TABLET PO SCH (09:42)
[2021-07-20 12:09] VITALS: BP 152/76; PULSE 74; TEMP 98.5
== END 2021-07-20 13:38 | disposition home or self-care (01) ==
LOC: 2ANU 22:51 → EMEROOARM 22:51 → SUATTDRO 07-19 03:17 → 2ANU 07-19 05:05
PROVIDERS: ADMIT Internal Medicine; ATTEND Internal Medicine

== ENCOUNTER 2021-09-18 06:11 | Inpatient (IN) ==
[2021-09-18] MEDS ORDERED: CeFAZolin Syr 2,000MG/20 ML 2,000 MG/20 ML SYRINGE IVPB ONE (06:48)
[2021-09-18] MEDS ORDERED: Ringers Solution, Lactated 1,000 ML IVC SCH (07:00)
[2021-09-18] MEDS ORDERED: Vancomycin 1,000 MG VIAL ONE (07:04)
[2021-09-18] MEDS ORDERED: Heparin 1,000 UNITS/500 mL 1,000 ML ONE (07:04)
[2021-09-18] MEDS ORDERED: Bupivacaine-MPF 0.25% 10 ML VIAL ONE (07:04)
[2021-09-18] MEDS ORDERED: Lidocaine 1% 0 ML ONE (07:04)
[2021-09-18] MEDS ORDERED: Famotidine 20 MG/2 ML VIAL IVP ONE (07:10)
[2021-09-18] MEDS ORDERED: Acetaminophen IV 1,000 MG/100 ML BAG IVPB ONE (07:11)
[2021-09-18] MEDS ORDERED: Heparin 1,000 UNITS/500 mL 0 ML ONE (07:13)
[2021-09-18] MEDS ORDERED: Lidocaine HCL 4 ML Topical Solution (Laryng-O-Jet Kit Sterile Pak) TP ONE (07:20)
[2021-09-18] MEDS ORDERED: *HR* Propofol 200 MG/20 ML VIAL IVP ONE (07:21)
[2021-09-18] MEDS ORDERED: *HR* FentaNYL (PF) 100 MCG/2 ML VIAL ONE (07:22)
[2021-09-18] MEDS ORDERED: Lidocaine -MPF 2% 5 ML VIAL ONE (07:23)
[2021-09-18] MEDS ORDERED: *HR* Rocuronium Bromide 50 MG/5 ML VIAL ONE (07:24)
[2021-09-18] MEDS ORDERED: *HR* Succinylcholine 200 MG/10 ML VIAL IVP ONE (07:24)
[2021-09-18] MEDS ORDERED: Protamine Sulfate 50 MG/5 ML VIAL IVP ONE (07:26)
[2021-09-18] MEDS ORDERED: Ondansetron 4 MG/2 ML VIAL ONE (07:28)
[2021-09-18] MEDS ORDERED: *HR* Phenylephrine 10 MG/ML VIAL ONE (07:29)
[2021-09-18] MEDS ORDERED: *HR* Remifentanil 1 MG VIAL IVP ONE (07:29)
[2021-09-18] MEDS ORDERED: *HR* Heparin 5,000 UNIT/ML VIAL ONE (07:36)
[2021-09-18] MEDS ORDERED: NiCARdipine 2.5 MG/10 ML Syringe IVPB ONE (07:41)
[2021-09-18] MEDS ORDERED: Vancomycin 1,000 MG, Sodium Chloride IRRigation 1,000 ML IR ONE (07:45)
[2021-09-18] MEDS ORDERED: EPHEDrine 50 MG/ML VIAL ONE (09:09)
[2021-09-18] MEDS ORDERED: Sugammadex Sodium 200 MG/2 ML VIAL IV ONE (10:04)
[2021-09-18] MEDS ORDERED: Ondansetron 4 MG/2 ML VIAL IVP PRN ×2 (10:44→12:32)
[2021-09-18] MEDS: *HR* HYDROmorphone PF 0.5 MG/0.5 ML SYRINGE IVP PRN ×3 (10:47→11:05)
[2021-09-18] MEDS: *HR* Labetalol 20 MG/4 ML SYRINGE IVP PRN ×4 (10:55→11:17)
[2021-09-18] MEDS ORDERED: Ondansetron ODT 4 MG TAB.RAPDIS SL PRN (12:32)
[2021-09-18] MEDS ORDERED: 0.9 % Sodium Chloride 1,000 ML IVC SCH (12:32)
[2021-09-18] MEDS ORDERED: Naloxone 0.4 MG/ML INJ IVP PRN (12:32)
[2021-09-18] MEDS ORDERED: Nitroglycerin 0.4 MG TAB.SUBL SL PRN (12:32)
[2021-09-18] MEDS ORDERED: Acetaminophen 325 MG TABLET PO PRN (12:32)
[2021-09-18] MEDS ORDERED: *HR* Labetalol 20 MG/4 ML SYRINGE IVP PRN (12:32)
[2021-09-18] MEDS ORDERED: *HR* OxyCODONE/APAP 5/325 TABLET PO PRN (12:32)
[2021-09-18] MEDS: Gabapentin 400 MG CAPSULE PO SCH ×2 (14:06→20:41)
[2021-09-18] MEDS: *HR* OxyCODONE Immed Rel 5 MG TABLET PO PRN ×2 (14:06→20:41)
[2021-09-18] MEDS: *HR* Metoprolol 5 MG/5 ML VIAL IVP SCH ×2 (14:09→18:00)
[2021-09-18] MEDS: CeFAZolin 2 GM/100 ML BAG IVPB SCH ×2 (14:14→22:30)
[2021-09-18] MEDS: Morphine Sulfate ER (12 HR) 60 MG TABLET.ER PO SCH (17:59)
[2021-09-18] MEDS: ALPRAZolam 0.5 MG TABLET PO SCH (20:41)
[2021-09-19] MEDS: *HR* Metoprolol 5 MG/5 ML VIAL IVP SCH ×2 (00:30→05:38)
[2021-09-19] MEDS: Morphine Sulfate ER (12 HR) 60 MG TABLET.ER PO SCH (05:38)
[2021-09-19] MEDS ORDERED: *HR* Heparin 5,000 UNIT/ML VIAL SQ SCH ×2 (06:00)
[2021-09-19] MEDS: CeFAZolin 2 GM/100 ML BAG IVPB SCH (08:01)
[2021-09-19] MEDS: ALPRAZolam 0.5 MG TABLET PO SCH (08:07)
[2021-09-19] MEDS: Gabapentin 400 MG CAPSULE PO SCH (08:08)
[2021-09-19] MEDS ORDERED: Metoprolol XL (24 HR) Succ 50 MG TAB.ER.24H PO SCH (09:00)
[2021-09-19] MEDS ORDERED: amLODIPine 5 MG TABLET PO SCH (09:00)
[2021-09-19] MEDS ORDERED: Isosorbide MONOnitrate (24 HR) 30 MG TAB.ER.24H PO SCH (09:00)
[2021-09-19] MEDS ORDERED: Aspirin Enteric Coated 81 MG Tablet PO SCH (09:00)
[2021-09-19 11:27] VITALS: BP 165/87; PULSE 74; TEMP 97.9; O2SAT 100
== END 2021-09-19 13:20 | disposition home or self-care (01) | DRG 39 ==
LOC: SAMDAY 06:11 → 2NNU 11:58
PROVIDERS: ADMIT Surgery; ATTEND Surgery

== ENCOUNTER 2022-01-16 13:40 | Inpatient (IN) ==
[2022-01-16] MEDS ORDERED: Piperacillin/Tazobactam 3.375 GM in 0.9 % Sodium Chloride Mini Bag 100 ML IVPB ONE (14:24)
[2022-01-16 14:44] LABS: Basophils % 0.2 %; Hematocrit 35.3 % (37.5-50.1); Hemoglobin 11.4 g/dL (12.9-16.9); Immature Granulocytes % 1.1 % (0-4); Lymphocytes # 0.5 K/mcL (0.6-4.6); Lymphocytes % 3.3 %; Mean Corpuscular HGB Conc 32.3 g/dL (31.6-35.5); Mean Corpuscular Hemoglobin 27.7 pg (28.0-33.3); Mean Corpuscular Volume 85.7 fL (83.0-100.0); Monocytes # 1.2 K/mcL (0.0-1.3); Monocytes % 8.2 %; Platelet Count 250 K/mcL (140-400); Red Blood Count 4.12 M/mcL (4.19-5.50); Red Cell Distribution Width 15.1 % (11.5-14.5); Segmented Neutrophils % 87.2 %; White Blood Count 14.9 K/mcL (4.3-11.1)
[2022-01-16] MEDS: 0.9 % Sodium Chloride 1,000 ML IVC SCH ×3 (14:47→16:54)
[2022-01-16 14:51] LABS: INR 1.9
[2022-01-16 14:54] LABS: Activated Partial Thrombo Time 35.6 Seconds (26.0-36.0)
[2022-01-16 15:11] LABS: Alanine Aminotransferase 15 Units/L (7-52); Albumin 3.6 g/dL (3.5-5.7); Albumin/Globulin Ratio 1.1 (1.1-2.2); Alkaline Phosphatase 103 Units/L (34-104); Aspartate Amino Transferase 65 Units/L (13-39); BUN/Creatinine Ratio 17 (6-26); Bilirubin,Direct 0.3 mg/dL (0.0-0.2); Bilirubin,Indirect 0.4 mg/dL (0.0-1.0); Bilirubin,Total 0.7 mg/dL (0.3-1.0); Blood Urea Nitrogen 20 mg/dL (8-23); Carbon Dioxide 23 mEq/L (23-29); Chloride 102 mEq/L (98-107); Globulin 3.2 g/dL (2.4-3.5); Glucose 172 mg/dL (70-105); Magnesium 1.7 mg/dL (1.6-2.6); Osmolality,Calculated 291 (280-300); Phosphorous 1.3 mg/dL (2.7-4.5); Potassium 2.5 mEq/L (3.5-5.1); Sodium 137 mEq/L (136-145); Total Protein 6.8 g/dL (6.4-8.9); Troponin I 0.13 ng/mL (< 0.04); eGFR For African Americans > 60 (> 60); eGFR For Non-African Americans 59 (> 60)
[2022-01-16 18:37] LABS: Bacteria,Urine Few per hpf (None-Few); Bilirubin,Urine Negative (Negative); Blood,Urine Large (Negative); Clarity,Urine Turbid (Clear); Color,Urine Yellow (Yellow); Glucose,Urine (UA) 30 mg/dL (Normal); Hyaline Casts,Urine Few per lpf (None Seen); Ketones,Urine Trace mg/dL (Negative); Leukocyte Esterase,Urine Large (Negative); Mucus,Urine Few per lpf (None-Few); Nitrite,Urine Positive (Negative); PH,Urine 6.5 pH Units (5.0-8.0); Protein,Urine 200 mg/dL (Neg-Trace); RBC,Urine 15-30 per hpf (0-3); Renal Epithelial Cells,Urine Few per hpf (None-Few); Specific Gravity,Urine 1.013 (1.010-1.025); Squamous Epithelial Cell,Urine Few per hpf (None-Few); Transitional Epi Cells,Urine Few per hpf (None-Few); Urobilinogen,Urine Normal (Normal); WBC,Urine TNTC per hpf (0-3)
[2022-01-16] MEDS ORDERED: 0.9 % Sodium Chloride 1,000 ML IVC SCH (22:00)
[2022-01-16] MEDS ORDERED: Naloxone 0.4 MG/ML INJ IVP PRN (22:03)
[2022-01-16 22:14] LABS: Potassium,Urine 28.8 mEq/L; Sodium, Urine 33.3 mEq/L
[2022-01-16] MEDS ORDERED: Ringers Solution, Lactated 1,000 ML IVC SCH (22:15)
[2022-01-16] MEDS ORDERED: Aspirin 325 MG TABLET PO ONE (22:26)
[2022-01-16] MEDS ORDERED: diazePAM 5 MG TABLET PO PRN ×3 (22:26→22:35)
[2022-01-16] MEDS ORDERED: *HR* Heparin 5,000 UNIT/ML VIAL IVP ONE (22:39)
[2022-01-16] MEDS ORDERED: *HR* Heparin 5,000 UNIT/ML VIAL IVP PRN (22:39)
[2022-01-16 23:24] LABS: Thyroid Stimulating Hormone 0.669 mcIU/mL (0.340-5.600)
[2022-01-16] MEDS: Heparin 25,000UNIT/250ML 1/2NS 25,000 UNIT/250 ML IV.SOLN IVC SCH (23:35)
[2022-01-17] MEDS: cefTRIAXone 1,000 MG in Water for inj. (sterile) 10 ML IVP SCH ×2 (00:55→08:25)
[2022-01-17 02:21] LABS: Basophils % 0.1 %; Hematocrit 29.7 % (37.5-50.1); Immature Granulocytes % 0.4 % (0-4); Lymphocytes # 0.6 K/mcL (0.6-4.6); Mean Corpuscular Hemoglobin 27.6 pg (28.0-33.3); Mean Corpuscular Volume 86.3 fL (83.0-100.0); Mean Platelet Volume 11.4 fL (9.4-12.4); Monocytes # 0.5 K/mcL (0.0-1.3); Monocytes % 3.6 %; Neutrophils # 12.7 K/mcL (1.6-8.9); Platelet Count 196 K/mcL (140-400); Red Blood Count 3.44 M/mcL (4.19-5.50); Red Cell Distribution Width 15.4 % (11.5-14.5); Segmented Neutrophils % 91.9 %; White Blood Count 13.9 K/mcL (4.3-11.1)
[2022-01-17 02:33] LABS: Hemoglobin 9.5 g/dL (12.9-16.9)
[2022-01-17 02:36] LABS: Heparin anti-factor XA UFH < 0.04 IU/mL (0.30-0.70)
[2022-01-17 02:37] LABS: INR 1.6
[2022-01-17 02:46] LABS: Alanine Aminotransferase 14 Units/L (7-52); Albumin 2.9 g/dL (3.5-5.7); Alkaline Phosphatase 89 Units/L (34-104); Aspartate Amino Transferase 63 Units/L (13-39); BUN/Creatinine Ratio 18 (6-26); Bilirubin,Total 0.5 mg/dL (0.3-1.0); Blood Urea Nitrogen 15 mg/dL (8-23); Calcium 7.6 mg/dL (8.6-10.3); Carbon Dioxide 21 mEq/L (23-29); Chloride 107 mEq/L (98-107); Globulin 2.9 g/dL (2.4-3.5); Glucose 125 mg/dL (70-105); Magnesium 1.8 mg/dL (1.6-2.6); Osmolality,Calculated 288 (280-300); Potassium 3.1 mEq/L (3.5-5.1); Sodium 138 mEq/L (136-145); Total Protein 5.8 g/dL (6.4-8.9); eGFR For African Americans > 60 (> 60); eGFR For Non-African Americans > 60 (> 60)
[2022-01-17] MEDS ORDERED: Ringers Solution, Lactated 1,000 ML IVC SCH (03:15)
[2022-01-17] MEDS ORDERED: Potassium Chloride Elixir 20 MEQ/15 ML UDC PO ONE ×2 (03:16→03:49)
[2022-01-17 03:31] LABS: Troponin I 0.56 ng/mL (< 0.04)
[2022-01-17 03:59] LABS: Amphetamine Screen,Urine Negative ng/mL (Cutoff=1000); Barbiturate Screen,Urine Negative ng/mL (Cutoff=200); Benzodiazepines Screen,Urine Positive ng/mL (Cutoff=200); Cannabinoid Screen,Urine Negative ng/mL (Cutoff = 50); Cocaine Screen,Urine Negative ng/mL (Cutoff= 300); Opiate Screen,Urine Negative ng/mL (Cutoff=300); Phencyclidine Screen,Urine Negative ng/mL (Cutoff=25)
[2022-01-17] MEDS: diazePAM 5 MG TABLET PO PRN ×2 (08:25→21:21)
[2022-01-17] MEDS: Aspirin 81 MG TAB.CHEW PO SCH (08:25)
[2022-01-17] MEDS: Ringers Solution, Lactated 1,000 ML IVC SCH ×2 (08:33→14:16)
[2022-01-17 09:00] LABS: A.calcoaceticus-baumannii cplx Not Detected (Not Detect); Bacteroides fragilis by PCR Not Detected (Not Detect); CTX-M ESBL Gene Not Detected (Not Detect); Candida albicans by PCR Not Detected (Not Detect); Candida auris by PCR Not Detected (Not Detect); Candida glabrata by PCR Not Detected (Not Detect); Candida krusei by PCR Not Detected (Not Detect); Candida parapsilosis by PCR Not Detected (Not Detect); Enterobacter cloacae Cmplx PCR Not Detected (Not Detect); Enterococcus faecalis by PCR Not Detected (Not Detect); Enterococcus faecium by PCR Not Detected (Not Detect); Escherichia coli by PCR DETECTED (Not Detect); IMP Carbapenem-Resist Gene Not Detected (Not Detect); Klebs. pneumoniae group by PCR Not Detected (Not Detect); Klebsiella aerogenes by PCR Not Detected (Not Detect); Klebsiella oxytoca by PCR Not Detected (Not Detect); NDM Carbapenem-Resist Gene Not Detected (Not Detect); OXA-48-like Carbap-Resist Gene Not Detected (Not Detect); Proteus by PCR Not Detected (Not Detect); Pseudomonas aeruginosa by PCR Not Detected (Not Detect); Salmonella species by PCR Not Detected (Not Detect); Serratia marcescens by PCR Not Detected (Not Detect); Staph epidermidis by PCR Not Detected (Not Detect); Staph lugdunensis by PCR Not Detected (Not Detect); Staphylococcus aureus by PCR Not Detected (Not Detect); Staphylococcus by PCR Not Detected (Not Detect); Stenotrophomonas maltophilia Not Detected (Not Detect); Streptococcus agalactiae(B)PCR Not Detected (Not Detect); Streptococcus by PCR Not Detected (Not Detect); Streptococcus pneumoniae PCR Not Detected (Not Detect); Streptococcus pyogenes (A) PCR Not Detected (Not Detect); VIM Carbapenem-Resist Gene Not Detected (Not Detect); blaKPC Carbapenem-Resist Gene Not Detected (Not Detect); mcr-1 Colistin-Resist Gene Not Detected (Not Detect)
[2022-01-17 09:01] LABS: Candida tropicalis by PCR Not Detected (Not Detect); Crypto. neoformans/gattii PCR Not Detected (Not Detect)
[2022-01-17] MEDS: *HR* Heparin 5,000 UNIT/ML VIAL IVP PRN (14:17)
[2022-01-18] MEDS: Ringers Solution, Lactated 1,000 ML IVC SCH ×3 (00:17→22:09)
[2022-01-18] MEDS: Heparin 25,000UNIT/250ML 1/2NS 25,000 UNIT/250 ML IV.SOLN IVC SCH ×2 (00:18→20:16)
[2022-01-18 04:11] LABS: Basophils % 0.1 %; Hematocrit 32.4 % (37.5-50.1); Hemoglobin 10.4 g/dL (12.9-16.9); Immature Granulocytes % 1.1 % (0-4); Lymphocytes # 0.8 K/mcL (0.6-4.6); Lymphocytes % 5.2 %; Mean Corpuscular HGB Conc 32.1 g/dL (31.6-35.5); Mean Corpuscular Hemoglobin 27.2 pg (28.0-33.3); Mean Corpuscular Volume 84.8 fL (83.0-100.0); Mean Platelet Volume 11.8 fL (9.4-12.4); Monocytes # 0.7 K/mcL (0.0-1.3); Monocytes % 4.4 %; Neutrophils # 13.2 K/mcL (1.6-8.9); Platelet Count 188 K/mcL (140-400); Red Blood Count 3.82 M/mcL (4.19-5.50); Red Cell Distribution Width 15.3 % (11.5-14.5); Segmented Neutrophils % 89.2 %; White Blood Count 14.9 K/mcL (4.3-11.1)
[2022-01-18 04:31] LABS: BUN/Creatinine Ratio 13 (6-26); Blood Urea Nitrogen 9 mg/dL (8-23); Calcium 7.7 mg/dL (8.6-10.3); Carbon Dioxide 23 mEq/L (23-29); Chloride 102 mEq/L (98-107); Glucose 113 mg/dL (70-105); Osmolality,Calculated 279 (280-300); Potassium 2.6 mEq/L (3.5-5.1); Sodium 135 mEq/L (136-145); eGFR For African Americans > 60 (> 60); eGFR For Non-African Americans > 60 (> 60)
[2022-01-18] MEDS ORDERED: Potassium Chloride Elixir 20 MEQ/15 ML UDC PO ONE (04:43)
[2022-01-18 08:40] LABS: Creatine Kinase 1006 Units/L (30-223)
[2022-01-18] MEDS: Aspirin 81 MG TAB.CHEW PO SCH (09:20)
[2022-01-18] MEDS: cefTRIAXone 2,000 MG in 0.9 % Sodium Chloride 20 ML IVP SCH (09:20)
[2022-01-18] MEDS: diazePAM 5 MG TABLET PO PRN ×3 (09:28→23:45)
[2022-01-18] MEDS: *HR* Heparin 5,000 UNIT/ML VIAL IVP PRN (11:30)
[2022-01-18] MEDS ORDERED: Metoprolol XL (24 HR) Succ 50 MG TAB.ER.24H PO ONE (11:36)
[2022-01-18] MEDS: *HR* OxyCODONE Immed Rel 5 MG TABLET PO PRN ×3 (12:06→23:44)
[2022-01-18] MEDS: amLODIPine 5 MG TABLET PO SCH (14:25)
[2022-01-18] MEDS: Nicotine 14 MG PATCH.TD24 TD SCH (23:45)
[2022-01-19 01:33] LABS: Basophils % 0.2 %; Hematocrit 30.6 % (37.5-50.1); Hemoglobin 9.9 g/dL (12.9-16.9); Immature Granulocytes % 1.4 % (0-4); Lymphocytes # 0.8 K/mcL (0.6-4.6); Lymphocytes % 6.4 %; Mean Corpuscular HGB Conc 32.4 g/dL (31.6-35.5); Mean Corpuscular Hemoglobin 27.7 pg (28.0-33.3); Mean Corpuscular Volume 85.5 fL (83.0-100.0); Mean Platelet Volume 11.5 fL (9.4-12.4); Monocytes # 0.8 K/mcL (0.0-1.3); Monocytes % 6.3 %; Neutrophils # 10.7 K/mcL (1.6-8.9); Platelet Count 162 K/mcL (140-400); Red Blood Count 3.58 M/mcL (4.19-5.50); Red Cell Distribution Width 15.2 % (11.5-14.5); Segmented Neutrophils % 85.7 %; White Blood Count 12.5 K/mcL (4.3-11.1)
[2022-01-19 01:55] LABS: BUN/Creatinine Ratio 12 (6-26); Blood Urea Nitrogen 9 mg/dL (8-23); Calcium 7.9 mg/dL (8.6-10.3); Carbon Dioxide 26 mEq/L (23-29); Chloride 99 mEq/L (98-107); Glucose 107 mg/dL (70-105); Osmolality,Calculated 271 (280-300); Potassium 2.5 mEq/L (3.5-5.1); Sodium 131 mEq/L (136-145); eGFR For African Americans > 60 (> 60); eGFR For Non-African Americans > 60 (> 60)
[2022-01-19] MEDS: *HR* OxyCODONE Immed Rel 5 MG TABLET PO PRN ×3 (03:48→14:47)
[2022-01-19] MEDS: diazePAM 5 MG TABLET PO PRN ×2 (03:49→08:17)
[2022-01-19] MEDS: *HR* Heparin 5,000 UNIT/ML VIAL IVP PRN ×2 (04:28→17:51)
[2022-01-19] MEDS: Aspirin 81 MG TAB.CHEW PO SCH (08:13)
[2022-01-19] MEDS: amLODIPine 5 MG TABLET PO SCH (08:13)
[2022-01-19] MEDS: Metoprolol XL (24 HR) Succ 50 MG TAB.ER.24H PO SCH (08:13)
[2022-01-19] MEDS: Nicotine 14 MG PATCH.TD24 TD SCH (08:14)
[2022-01-19] MEDS: cefTRIAXone 2,000 MG in 0.9 % Sodium Chloride 20 ML IVP SCH (08:15)
[2022-01-19] MEDS ORDERED: Ondansetron ODT 4 MG TAB.RAPDIS SL PRN (13:16)
[2022-01-19] MEDS ORDERED: OXYCODONE HCL 20 MG PO PRN (16:30)
[2022-01-19] MEDS: ALPRAZolam 0.5 MG TABLET PO PRN (17:46)
[2022-01-19] MEDS: Heparin 25,000UNIT/250ML 1/2NS 25,000 UNIT/250 ML IV.SOLN IVC SCH (17:50)
[2022-01-19] MEDS: Gabapentin 400 MG CAPSULE PO SCH (21:44)
[2022-01-20] MEDS: diazePAM 5 MG TABLET PO PRN (00:15)
[2022-01-20] MEDS: *HR* OxyCODONE Immed Rel 5 MG TABLET PO PRN ×4 (00:15→20:11)
[2022-01-20 06:32] LABS: Basophils % 0.4 %; Eosinophils # 0.1 K/mcL (0.0-0.6); Eosinophils % 1.5 %; Hematocrit 26.4 % (37.5-50.1); Hemoglobin 8.5 g/dL (12.9-16.9); Immature Granulocytes % 1.6 % (0-4); Lymphocytes # 1.2 K/mcL (0.6-4.6); Lymphocytes % 14.4 %; Mean Corpuscular HGB Conc 32.2 g/dL (31.6-35.5); Mean Corpuscular Volume 83.8 fL (83.0-100.0); Mean Platelet Volume 10.9 fL (9.4-12.4); Monocytes # 1.1 K/mcL (0.0-1.3); Neutrophils # 5.4 K/mcL (1.6-8.9); Platelet Count 161 K/mcL (140-400); Red Blood Count 3.15 M/mcL (4.19-5.50); Red Cell Distribution Width 15.4 % (11.5-14.5); Segmented Neutrophils % 68.1 %
[2022-01-20 06:54] LABS: BUN/Creatinine Ratio 10 (6-26); Blood Urea Nitrogen 9 mg/dL (8-23); Calcium 7.6 mg/dL (8.6-10.3); Carbon Dioxide 26 mEq/L (23-29); Chloride 103 mEq/L (98-107); Glucose 99 mg/dL (70-105); Osmolality,Calculated 277 (280-300); Potassium 3.6 mEq/L (3.5-5.1); Sodium 134 mEq/L (136-145); eGFR For African Americans > 60 (> 60); eGFR For Non-African Americans > 60 (> 60)
[2022-01-20 08:07] LABS: Magnesium 1.6 mg/dL (1.6-2.6)
[2022-01-20] MEDS ORDERED: Magnesium Sulfate 1 GM/102 ML PIGGYBACK IVPB ONE (08:42)
[2022-01-20] MEDS: Aspirin 81 MG TAB.CHEW PO SCH (09:00)
[2022-01-20] MEDS: Nicotine 14 MG PATCH.TD24 TD SCH (09:00)
[2022-01-20] MEDS: amLODIPine 5 MG TABLET PO SCH (09:00)
[2022-01-20] MEDS: Metoprolol XL (24 HR) Succ 50 MG TAB.ER.24H PO SCH (09:00)
[2022-01-20] MEDS: Isosorbide MONOnitrate (24 HR) 30 MG TAB.ER.24H PO SCH (09:01)
[2022-01-20] MEDS: cefTRIAXone 2,000 MG in 0.9 % Sodium Chloride 20 ML IVP SCH (09:01)
[2022-01-20] MEDS: Gabapentin 400 MG CAPSULE PO SCH ×3 (09:01→20:10)
[2022-01-20 15:23] LABS: Hematocrit 28.3 % (37.5-50.1); Hemoglobin 9.2 g/dL (12.9-16.9); Mean Corpuscular HGB Conc 32.5 g/dL (31.6-35.5); Mean Corpuscular Hemoglobin 27.1 pg (28.0-33.3); Mean Corpuscular Volume 83.2 fL (83.0-100.0); Mean Platelet Volume 11.5 fL (9.4-12.4); Platelet Count 205 K/mcL (140-400); Red Cell Distribution Width 15.2 % (11.5-14.5); White Blood Count 9.1 K/mcL (4.3-11.1)
[2022-01-20] MEDS: ALPRAZolam 0.5 MG TABLET PO PRN (15:37)
[2022-01-20] MEDS: Cefdinir 300 MG CAPSULE PO SCH (20:11)
[2022-01-21] MEDS: *HR* OxyCODONE Immed Rel 5 MG TABLET PO PRN ×3 (00:11→14:04)
[2022-01-21] MEDS: diazePAM 5 MG TABLET PO PRN (00:12)
[2022-01-21 03:48] LABS: Hematocrit 26.8 % (37.5-50.1); Hemoglobin 8.6 g/dL (12.9-16.9); Mean Corpuscular HGB Conc 32.1 g/dL (31.6-35.5); Mean Corpuscular Hemoglobin 27.1 pg (28.0-33.3); Mean Corpuscular Volume 84.5 fL (83.0-100.0); Mean Platelet Volume 10.9 fL (9.4-12.4); Platelet Count 175 K/mcL (140-400); Red Blood Count 3.17 M/mcL (4.19-5.50); Red Cell Distribution Width 15.5 % (11.5-14.5); White Blood Count 8.3 K/mcL (4.3-11.1)
[2022-01-21 04:10] LABS: BUN/Creatinine Ratio 13 (6-26); Blood Urea Nitrogen 11 mg/dL (8-23); Calcium 7.8 mg/dL (8.6-10.3); Carbon Dioxide 26 mEq/L (23-29); Chloride 100 mEq/L (98-107); Glucose 102 mg/dL (70-105); Magnesium 1.7 mg/dL (1.6-2.6); Osmolality,Calculated 274 (280-300); Potassium 3.5 mEq/L (3.5-5.1); Sodium 132 mEq/L (136-145)
[2022-01-21] MEDS: Aspirin 81 MG TAB.CHEW PO SCH (08:13)
[2022-01-21] MEDS: Metoprolol XL (24 HR) Succ 50 MG TAB.ER.24H PO SCH (08:14)
[2022-01-21] MEDS: amLODIPine 5 MG TABLET PO SCH (08:14)
[2022-01-21] MEDS: Cefdinir 300 MG CAPSULE PO SCH (08:14)
[2022-01-21] MEDS: Gabapentin 400 MG CAPSULE PO SCH ×2 (08:14→14:04)
[2022-01-21] MEDS: Isosorbide MONOnitrate (24 HR) 30 MG TAB.ER.24H PO SCH (08:14)
[2022-01-21] MEDS: Nicotine 14 MG PATCH.TD24 TD SCH (08:14)
[2022-01-21] MEDS: ALPRAZolam 0.5 MG TABLET PO PRN (08:14)
[2022-01-21 12:14] VITALS: BP 140/75; TEMP 99.2
[2022-01-21 13:11] VITALS: O2SAT 95
[2022-01-21 16:01] VITALS: PULSE 73
== END 2022-01-21 15:40 | disposition home health service (06) | DRG 871 ==
LOC: 2NNU 13:40 → EMEROOARM 13:40 → SUATTDRO 21:36 → 2NNU 21:51
PROVIDERS: ADMIT Internal Medicine; ATTEND Student in an Organized Health Care Education/Training Program